=== PATIENT | male | born 1980 | race Caucasian/White ===

== ENCOUNTER 2020-05-26 03:16 | Inpatient (IN) | payer BC, OTHER ==
[~2020-05-26] VITALS: Ht 175.3 cm; Wt 87.6 kg
[~2020-05-26 03:16] MED LIST: ALPR1 PO; Bactrim Ds Tab1 EACH PO; CEPH250A PO; CRUTCH2 XX; DULO30 PO; ERYT.5TO RIGHTEYE; IBUP600 PO; IBUP800 PO; LORA1 PO; MARIJAUNA; Mobic15 MG PO; NAPR500 PO; Naprosyn500 MG PO; Norco 10-325 T1 EACH PO; Norco 5-325 Ta1 EACH PO; OXYACE5T PO; OXYACE7.5T PO; Percocet 5-3251 EACH PO; RXOXYACE PO
[2020-05-26] MEDS ORDERED: LOSARTAN-HCTZ1 EAC6 PO (03:28)
[2020-05-26] MEDS ORDERED: CLON.5 PO (03:28)
[2020-05-26] MEDS ORDERED: BACL10 PO (03:29)
[2020-05-26] MEDS ORDERED: BUPROPION XL150 M1 PO (03:29)
[2020-05-26] MEDS ORDERED: CYCL10 PO (03:29)
[2020-05-26 04:18] LABS: BASOPHILS ABSOLUTE AUTO 0.04 K/mm3 (0.00-0.23); BASOPHILS PERCENT AUTO 0 % (0-2); EOSINOPHILS ABSOLUTE AUTO 0.03 K/mm3 (0.00-0.68); EOSINOPHILS PERCENT AUTO 0 % (0-6); Hematocrit 49.4 % (37.0-53.0); Hemoglobin 17.3 g/dL (13.5-17.5); IMMATURE GRAN ABSOLUTE AUTO 0.16 K/mm3 (0.00-0.10); IMMATURE GRAN PERCENT AUTO 1 % (0-1); LYMPHOCYTES ABSOLUTE AUTO 2.13 K/mm3 (0.84-5.20); LYMPHOCYTES PERCENT AUTO 11 % (21-46); MONOCYTES ABSOLUTE AUTO 1.21 K/mm3 (0.16-1.47); MONOCYTES PERCENT AUTO 6 % (4-13); Mean Corpuscular HGB 30.1 pg (26.0-34.0); Mean Corpuscular Volume 86 fL (80-100); NEUTROPHILS ABSOLUTE AUTO 16.08 K/mm3 (1.96-9.15); NEUTROPHILS PERCENT AUTO 82 % (41-73); RDW Coefficient Variation 10.9 % (11.7-14.2); RDW Standard Deviation 34.4 fL (35.1-46.3); Red Blood Cell Count 5.75 M/mm3 (4.30-5.90); White Blood Cell Count 19.65 K/mm3 (4.00-11.30)
[2020-05-26 04:21] LABS: Mean Platelet Volume 10.5 fL (9.1-12.4); Platelet Count 260 K/mm3 (150-400)
[2020-05-26 05:08] LABS: Acetaminophen, Random <2.0 ug/mL (10.0-30.0); Alanine Aminotransfer (ALT/SGP 26 U/L (12-78); Albumin, Blood 3.1 g/dL (3.4-5.0); Albumin/Globulin Ratio 0.9 (0.8-1.8); Alk Phos 36 U/L (50-136); Anion Gap 26 mmol/L (6-16); Aspartate Aminotrans (AST/SGOT 21 U/L (12-37); Bilirubin, Total 0.7 mg/dL (0.1-1.0); Blood Urea Nitrogen 43 mg/dL (8-24); Bun/Creatinine Ratio 25.9 (12.0-20.0); CO2, Blood 18 mmol/L (21-32); Calcium, Blood 7.3 mg/dL (8.5-10.1); Chloride, Blood 76 mmol/L (98-108); Creatinine, Blood 1.66 mg/dL (0.60-1.20); Ethanol (Alcohol), Blood, Med <3 mg/dL; Globulin, Blood 3.6 g/dL (2.2-4.0); Glomerular Filtration Rate 49 (60-); Glucose, Blood 451 mg/dL (70-99); Potassium, Blood 2.8 mmol/L (3.5-5.5); Salicylate 2.3 mg/dL (2.8-20.0); Sodium, Blood 120 mmol/L (136-145); Total Protein, Blood 6.7 g/dL (6.4-8.2)
[2020-05-26 06:17] LABS: CPK Creatine Kinase 235 U/L (39-308)
--- NOTE | 2020-05-26 08:53 | NUR ---
ADMIT PT ARRIVES TO ICU 13 VIA ER BED AT 0815. PT IS AWAKE, ALERT, AND TALKING NONSENSICALLY. PT WILL ANSWER QUESTIONS APPROPRIATELY, THEN THOUGHT PROCESS SHIFTS AND PT BEGINS SPEAKING NONSENSICALLY. PT DOES REPORT AUDITORY AND VISUAL HALLUCINATIONS. PT IS RESTLESS AND APPEARS VERY ANXIOUS. VITAL SIGNS STABLE. PT ON ROOM AIR. NS BOLUS INFUSING AT THIS TIME. DR MERRITT AT BEDSIDE TO EVALUATE PT AT THIS TIME. PT WITH GAUZE DRESSING TO LEFT WRIST WITH BLOOD SHADOW NOTED. PT ON 2MD HOLD AND PT ACTIVELY CONFIRMS INTENT FOR SUICIDE. 1:1 SITTER AT DOORWAY OF ROOM AND PT ON REMOTE MONITORING CAMERA. WILL CONTINUE TO MONITOR.
[2020-05-26 09:04] LABS: Bun/Creatinine Ratio 25.7 (12.0-20.0); Calcium, Blood 8.6 mg/dL (8.5-10.1); Creatinine, Blood 1.75 mg/dL (0.60-1.20); Potassium, Blood 3.5 mmol/L (3.5-5.5)
[2020-05-26 13:24] LABS: Anion Gap 9 mmol/L (6-16); Blood Urea Nitrogen 38 mg/dL (8-24); Bun/Creatinine Ratio 28.8 (12.0-20.0); CO2, Blood 21 mmol/L (21-32); Calcium, Blood 8.5 mg/dL (8.5-10.1); Chloride, Blood 103 mmol/L (98-108); Creatinine, Blood 1.32 mg/dL (0.60-1.20); Glomerular Filtration Rate >60 (60-); Glucose, Blood 107 mg/dL (70-99); Potassium, Blood 3.8 mmol/L (3.5-5.5); Sodium, Blood 133 mmol/L (136-145)
--- NOTE | 2020-05-26 13:29 | NUR ---
UPDATE PT CONTINUES TO HAVE HALLUCINATIONS AND DELUSIONAL THOUGHT PROCESS. PT IS ABLE TO BE REDIRECTABLE WITH CARE. PT REMAINS SUICIDAL WITH CURRENT INTENTIONS OF SI. PLAN IS FOR PT TO BE EVALUATED BY DOMINIQUE ZAVALETA WITH PSYCH ON 05/27/20 IN THE AM. PT REMAINS ON INVOLUNTARY HOLD AND 1:1 SITTER REMAINS AT DOORWAY. VITAL SIGNS STABLE.
--- NOTE | 2020-05-26 14:11 | NUR ---
CONFUSION/DR MERRITT PT QUICKLY CLIMBED UP OVER THE BED RAIL AND OUT OF BED WITH ALL LINES ATTACHED. DETACHED ALL CORDS AND IV LINE AND INQUIRED IF PT NEEDED TO VOID. PT NO REDIRECTABLE, PT PACING AROUND THE ROOM. PT THEN PROCEEDES TO WALK OUT OF ROOM 13 AND INTO ROOM 14, THEN QUICKLY WALKS BACK INTO ROOM 13 AND APOLOGIZES. WITH TWO OTHER RNS AT BESIDE, PT IS THEN AGREEABLE TO GET BACK INTO BED. DR MERRITT NOTIFED AND CAME TO BEDSIDE TO SEE PT. PT IS ANXIOUS AND TREMULOUS WITH GARBLED SPEECH. PT MED WITH PRN HALDOL, ZYPREXA, AND ATIVAN. WILL CONTINUE TO MONITOR.
[2020-05-26 14:48] LABS: Source, Urine Clean Catch
[2020-05-26 14:51] LABS: Appearance, Urine Clear (Clear); Bilirubin, Urine Neg (Neg); Blood, Urine Neg (Neg); Color, Urine Yellow (P-Yellow); Glucose Qualitative, Urine Neg (Neg); Ketones, Urine 3+ (Neg); Leukocyte Esterase, Urine Neg (Neg); Nitrite, Urine Neg (Neg); Protein, Urine 1+ (Neg); Urobilinogen, Urine NORM (Normal)
[2020-05-26 15:06] LABS: U Amphetamine Screen Not Detected; U Barbituate Screen Not Detected; U Benzodiazapine Screen Not Detected; U Buprenorphine Screen Not Detected; U Cannabinoids Screen DETECTED; U Cocaine Screen Not Detected; U Methadone Screen Not Detected; U Methamphetamine Screen Not Detected; U Opiates Screen Not Detected; U Phencyclidine Screen Not Detected
[2020-05-26 15:07] LABS: U Oxycodone Screen Not Detected; U Propoxyphene Screen Not Detected
--- NOTE | 2020-05-26 17:54 | NUR ---
SHIFT SUMMARY PT IS MORE RESTFUL AT THIS TIME. PT CONTINUES TO MUMBLE INCOHERENTLY AND HAVE DELUSIONS. PT WITH PERIODS OF RESTLESSNESS AND AGITATION. ALIYA VEST AND SBW RESTRAINTS REMAIN IN PLACE. VITAL SIGNS REMAIN STABLE. PT ON ROOM AIR. NS INFUSING AT 125 ML/HR. PT VOIDED ONCE THIS SHIFT WITH ASSISTANCE USING THE URINAL. PT IS NOT REDIRECTABLE. PT MED WITH HALDOL, ATIVAN, AND ZYPREXA PRN. SEE PREVIOUS NURSES NOTES FOR MORE INFO. INVOLUNTARY HOLD REMAINS IN PLACE. REMOTE MONITORING CAMERA IS ON AND 1:1 SITTER REMAINS AT DOORWAY. WILL CONTINUE TO MONITOR AND REPORT OFF TO ONCOMING RN.
--- NOTE | 2020-05-26 18:45 | NUR ---
CONTINUED AGITATION DR MERRITT NOTIFIED OF CONTINUED AGITATION AND THRASHING AROUND IN BED DESPITE PRN HALDOL AND ATIVAN. ORDERS RECIEVED FOR PRECEDEX GTT. PRECEDEX INITIATED AT THIS TIME.
--- NOTE | 2020-05-26 21:00 | NUR ---
ASSUMPTION OF CARE PT RESTING IN BED, SEDATED WITH PRECEDEX @ 0.7/kg/hr (SEE FLOWSHEET FOR TITRATIONS), PT AROUSES TO NOXIOUS STIMULI BUT IS UNABLE TO ANSWER QUESTIONS OR FOLLOW COMMANDS AT THIS TIME. MONITOR SHOWS SINUS RHYTHM WITH HR 100-120'S, BP WNL BUT TRENDING DOWN WITH SBP 130'S-90'S. PT IS AFEBRILE. SKIN IS DIAPHORETIC, CBG WNL. L WRIST AND HAND INJURIES WITH COBAN DRESSINGS IN PLACE, REMOVED COBAN, CLEANED WOUNDS AND REDRESSING WITH NON ADHERENT AND MEDIPORE DRESSING, SEE PHOTOS IN CHART. CONDOM CATHETER PLACED. ALIYA VEST AND BILAT WRIST RESTRAINTS IN PLACE. NOT VTE PROPHYLAXIS AT THIS TIME, SEE ORDERS AND H&P. 1:1 SITTER PRESENT AT PTS DOORWAY.
--- NOTE | 2020-05-26 22:58 | NUR ---
PT VERY AGITATED WITH LAB DRAW, PULLING AT RESTRAINTS, LEANING UP IN BED. INFORMED PT HE WAS IN THE HOSPITAL, PT STS "I KNOW". LET PT KNOW WE NEED TO DRAW BLOOD TO CHECK HIS LABS AND PT STS "OKAY, IM JUST TRYING TO GET OVER THERE." PT KEEPS EYES CLOSED, APPEARS TO BE HALLUCINATING, STS "DAHLIA, GO LAY DOWN" AND MAKES A GESTURE THAT APPEARS TO BE HIM KISSING SOMEONES HEAD. PRECEDEX RESTARTED AND ZYPREXA ADMINISTERED.
[2020-05-26 23:24] LABS: Anion Gap 5 mmol/L (6-16); Blood Urea Nitrogen 32 mg/dL (8-24); Bun/Creatinine Ratio 25.2 (12.0-20.0); CO2, Blood 26 mmol/L (21-32); Calcium, Blood 8.4 mg/dL (8.5-10.1); Chloride, Blood 106 mmol/L (98-108); Creatinine, Blood 1.27 mg/dL (0.60-1.20); Glomerular Filtration Rate >60 (60-); Glucose, Blood 111 mg/dL (70-99); Potassium, Blood 4.8 mmol/L (3.5-5.5); Sodium, Blood 137 mmol/L (136-145)
--- NOTE | 2020-05-27 00:36 | NUR ---
ATTEMPTS TO TITRATE PRECEDEX OFF UNSUCCESSFUL, PT WAKES UP, EXTREMETIES x4 TREMORING, PT MUMBLING AND FIDGETING WITH WATT AND WRIST RESTRAINTS. WHEN ASKED WHERE HE IS, PT STS "I'M RIGHT BEHIND YOU". PT HALLUCINATING AND TALKING TO PEOPLE NOT IN THE ROOM. PT DOES NOT OPEN EYES. IV HALIDOL ADMINISTERED AND PRECEDEX RESTARTED, TITRATED TO 0.05mcg/kg/hr R/T PREVIOUS HYPOTENSION EVEN WITH LOW DOSES INFUSING. 1:1 SITTER REMAINS AT DOORWAY.
[2020-05-27 04:58] LABS: BASOPHILS ABSOLUTE AUTO 0.03 K/mm3 (0.00-0.23); BASOPHILS PERCENT AUTO 0 % (0-2); EOSINOPHILS ABSOLUTE AUTO 0.02 K/mm3 (0.00-0.68); EOSINOPHILS PERCENT AUTO 0 % (0-6); Hematocrit 36.2 % (37.0-53.0); Hemoglobin 12.2 g/dL (13.5-17.5); IMMATURE GRAN ABSOLUTE AUTO 0.02 K/mm3 (0.00-0.10); IMMATURE GRAN PERCENT AUTO 0 % (0-1); LYMPHOCYTES ABSOLUTE AUTO 1.86 K/mm3 (0.84-5.20); LYMPHOCYTES PERCENT AUTO 24 % (21-46); MONOCYTES ABSOLUTE AUTO 0.98 K/mm3 (0.16-1.47); MONOCYTES PERCENT AUTO 13 % (4-13); Mean Corpuscular HGB 29.8 pg (26.0-34.0); Mean Corpuscular HGB Conc 33.7 g/dL (31.5-36.5); Mean Corpuscular Volume 88 fL (80-100); Mean Platelet Volume 10.4 fL (9.1-12.4); NEUTROPHILS ABSOLUTE AUTO 4.84 K/mm3 (1.96-9.15); NEUTROPHILS PERCENT AUTO 62 % (41-73); Platelet Count 215 K/mm3 (150-400); RDW Coefficient Variation 11.1 % (11.7-14.2); RDW Standard Deviation 35.8 fL (35.1-46.3); White Blood Cell Count 7.75 K/mm3 (4.00-11.30)
[2020-05-27 05:08] LABS: Alanine Aminotransfer (ALT/SGP 26 U/L (12-78); Albumin/Globulin Ratio 1.1 (0.8-1.8); Alk Phos 39 U/L (50-136); Anion Gap 5 mmol/L (6-16); Aspartate Aminotrans (AST/SGOT 15 U/L (12-37); Bilirubin, Total 1.3 mg/dL (0.1-1.0); Blood Urea Nitrogen 31 mg/dL (8-24); Bun/Creatinine Ratio 31.5 (12.0-20.0); CO2, Blood 25 mmol/L (21-32); Calcium, Blood 8.2 mg/dL (8.5-10.1); Chloride, Blood 108 mmol/L (98-108); Creatinine, Blood 0.98 mg/dL (0.60-1.20); Globulin, Blood 2.8 g/dL (2.2-4.0); Glomerular Filtration Rate >60 (60-); Glucose, Blood 108 mg/dL (70-99); Potassium, Blood 3.7 mmol/L (3.5-5.5); Sodium, Blood 138 mmol/L (136-145); Total Protein, Blood 5.8 g/dL (6.4-8.2)
[2020-05-27 07:10] LABS: C-PEPTIDE, SERUM 3.7 ng/mL (1.1-4.4)
--- NOTE | 2020-05-27 07:51 | NUR ---
SHIFT SUMMARY PT CONTINUES TO CYCLE THROUGH PERIODS OF REST AND RESTLESSNESS T/O SHIFT. PT ORIENTED ONLY TO SELF FOR MAJORITY OF SHIFT, BUT WAS ABLE TO STATE THAT HE WAS IN A HOSPITAL NEAR THE END OF SHIFT, PT FOLLOWING SOME COMMANDS, NOT ORIENTED TO YEAR OR EVENT. PT CONTINUES TO HALLUCINATE, HAVING CONVERSATIONS WITH PEOPLE NOT IN THE ROOM, CONVERSTAIONS APPEAR TO BE WITH HIS CHILDREN. PRECEDEX TITRATED TOLERATED, HALDOL x1, ZYPREXA x1 AND ATIVAN x2 ADMINISTERED THIS SHIFT. O2 SATURATIONS MAINTAINED> 90% ON RA. MONITOR SHOWS SINUS RHYTHM WITH HR 60'S-80'S, BP LABILE WITH PRECEDEX GTT. NO PO INTAKE THIS SHIFT. CONDOM CATHETER REMAINS IN PLACE. PT MOVES ALL EXTREMEITIES, MOVES SELF FROM SIDE TO SIDE, SITS UP AND BED AND PULLS ON WRIST RESTRAINTS. 1:1 SITTER REMAINS AT DOOR THROUGH ENTIRE SHIFT.
--- NOTE | 2020-05-27 08:30 | NUR ---
AM NOTE... ASSUMED CARE OF PT APROX 0700, PT IS A&Ox2 ABLE TO STATE HIS NAME/ AND THE YEAR. PT IS IN ALIYA VEST AND BILATERAL WRIST RESTRAINTS. PT HAS BEEN MAKING NONSENSICAL STATEMENTS LIKE "I FEEL LIKE A STORAGE UNIT" AND TELLING HIS DOG TO "SIT AND STAY." PT'S LEFT WRIST HAS A DRESSING THAT HAS SEROSANGUINOUS DRAINAGE. L/S CLEAR T/O ON RA. PT'S VS STABLE AT THIS TIME BP IS A LITTLE SOFT WITH SBP IN THE 80'S BUT MAPS>60. PRECEDEX IS RUNNING AT 0.3MCG/KG. PT IS IN NSR IN THE 60'S. PT HAS TRACE EDEMA NOTED TO HIS HANDS BILATERALLY. BT PRESENT AND HYPOACTIVE, ABD IS SOFT AND NONTENDER TO PALP. PT HAS A 1:1 SITTER, PT HAS NOT EXPRESSED ANY SUICIDAL IDEATIONS THIS AM. WILL CONTINUE TO MONITOR.
[2020-05-27 11:14] LABS: Anion Gap 5 mmol/L (6-16); Blood Urea Nitrogen 31 mg/dL (8-24); Bun/Creatinine Ratio 32.7 (12.0-20.0); CO2, Blood 26 mmol/L (21-32); Calcium, Blood 8.1 mg/dL (8.5-10.1); Chloride, Blood 109 mmol/L (98-108); Creatinine, Blood 0.95 mg/dL (0.60-1.20); Glomerular Filtration Rate >60 (60-); Glucose, Blood 103 mg/dL (70-99); Potassium, Blood 3.8 mmol/L (3.5-5.5); Sodium, Blood 140 mmol/L (136-145)
--- NOTE | 2020-05-27 15:22 | NUR ---
PT UPDATE.... PT'S MOTHER KAUSHIK HAS BEEN AT THE BEDSIDE FOR SEVERAL HOURS, SHE WAS PRESENT DURING THE TELE-PSYCH CONSULT WITH DR. COCO ZAVALETA. PER KAUSHIK THE PT'S FAMILY HAS A LONG HISTORY OF KIDNEY DISEASE. WHILE THE PT'S MOTHER WAS AT THE BEDSIDE THE PT HAD AN EPISODE OF 300MLS OF EMESIS OUT OF THE BLUE DURING THIS TIME PT WAS A&Ox4 HE WAS ABLE TO QUICKLY STATE HE WAS IN [place], HE WAS WIDE AWAKE AND NOT STRUGGLING TO KEEP HIS EYELIDS OPEN. THIS LASTED APROX 1-2 MINS THEN SUDDENLY THE PT'S HEAD DROPPED AND HE CLOSED HIS EYES AND WAS CONFUSED AND MUMBLING AGAIN. T/O THIS SHIFT THE PT'S MENTATION SEEMS TO HAVE BEEN IMPROVING, HE WILL HAVE MOMENTS OF VIVID CLARITY THEN HE WILL CLOSE HIS EYES AND START REACHING OUT INTO THE AIR IF TO GRAB SOMTHING. PT HAS NOT MADE ANY MENTION OF SUICIAL IDEATIONS SINCE THE START OF THIS SHIFT. WILL CONTINUE TO MONITOR.
[2020-05-27 17:33] LABS: Anion Gap 9 mmol/L (6-16); Blood Urea Nitrogen 26 mg/dL (8-24); Bun/Creatinine Ratio 32.5 (12.0-20.0); CO2, Blood 22 mmol/L (21-32); Chloride, Blood 112 mmol/L (98-108); Glomerular Filtration Rate >60 (60-); Glucose, Blood 92 mg/dL (70-99); Potassium, Blood 3.8 mmol/L (3.5-5.5); Sodium, Blood 143 mmol/L (136-145)
--- NOTE | 2020-05-27 17:53 | NUR ---
SHIFT SUMMARY... NO ACUTE NEGATIVE CHANGES NOTED THIS SHIFT. PT'S VS HAVE BEEN STABLE T/O SHIFT. PT IS MORE ALERT THIS EVENING THAN HE WAS THIS AM, BUT PT STILL CONTINUES TO HAVE DELUSIONS/HALLUCINATIONS AND SPEAKING WITH PEOPLE THAT ARE NOT THERE OR REACHING FOR THINGS IN THE AIR THAT ARE NOT THERE. PT'S MOTHER HAS BEEN AT THE BEDSIDE T/O THE SHIFT. PT CONTINUES TO BE ON THE PRECEDED GTT, THE PRECEDEX HAS BEEN TITRATED UP AND DOWN T/O THE SHIFT IN RELATION TO THE PT'S AGITATION, CURRENTLY THE PRECEDEX IS RUNNING AT 0.7 MCG. IT WAS ALOS NOTED THAT THE PT HAD NOT VOIDED VERY MUCH THIS SHIFT, A BLADDER SCAN WAS DONE AND FOUND TO HAVE >999MLS, PT WAS ENCOURAGED TO VOID AND WAS ABLE TO VOID APROX 150MLS WITH GREAT EFFORT, BLADDER SCAN WAS DONE AGAIN AND IT SHOWED 750MLS LEFT. PROVIDER WAS CALLED AND AN ORDER FOR IN AND OUT CATH WAS OBTAINED, THIS RN SPOKE WITH THE PT AND HIS MOTHER WHO WAS PRESENT IN THE ROOM, PER THE MOTHER THE PROVIDER WAS CALLED BACK AND ASKED FOR A NANCE INSTESAD OF A STRAIGHT CATH, PT'S MOTHER SPOKE WITH THE PROVIDER AND THIS RN WAS GIVEN AN ORDER FOR A NANCE. A NANCE WAS PLACED AND UA WAS SENT TO THE LAB. THE DRESSING ON THE LEFT WRIST WAS CHANGED D/T MODERATE DRAINAGE, NEW PICTURES OBTAINED FOR THE CHART. PT C/O OF SEVERE PAIN DURING WOUND CARE AND AFTERWARDS, PT WAS MEDICATED PER EMAR. PT CONTINUES TO HAVE DELUSIONS AND HALLUCIATIONS ABOUT "A WHITE CAT DRAGGING SOMETHING BLOODY ACROSS THE FLOOR." AND THE PT PULLING AT THINGS IN THE AIR. WILL CONTINUE TO MONITOR UNTIL REPORT IS GIVEN TO ONCOMING RN.
[2020-05-27 18:12] LABS: Source, Urine Catheter
[2020-05-27 18:15] LABS: Appearance, Urine Clear (Clear); Bilirubin, Urine Neg (Neg); Blood, Urine Neg (Neg); Color, Urine Yellow (P-Yellow); Glucose Qualitative, Urine Neg (Neg); Ketones, Urine 3+ (Neg); Leukocyte Esterase, Urine Neg (Neg); Nitrite, Urine Neg (Neg); Protein, Urine 1+ (Neg); Urobilinogen, Urine NORM (Normal)
--- NOTE | 2020-05-27 19:30 | NUR ---
ASSUMED CARE PT AWAKE AND ALERT TO NAME. IS NOT ABLE TO STATE PLACE AND CIRCUMSTANCES. MOTIONING AT THE AIR AND BLANKETS BUT IS EASILY DIRECTABLE AND FOLLOWS COMMANDS. LUNG SOUNDS CLEAR, HEAR TONES NORMAL. BOWEL TONES NORMAL. SITTER AT BEDSIDE. WILL CONTINUE TO MONITOR.
--- NOTE | 2020-05-27 23:30 | NUR ---
PT REMAINS AWAKE, CONFUSED. REACHING FOR THE AIR AND THINGS IN BED NOT THERE. PT UNABLE TO SLEEP. NOTIFIED PRICILA JAEGER. RECEIVED ORDER FOR ANAND.
--- NOTE | 2020-05-28 01:00 | NUR ---
pt remains agitated, swiping at air, mumbling incoherently and saying nonsense sentences. pt medicated with haldol as ordered. sitter remains at bedside for pt. safety. pt. directable and follows commands.
--- NOTE | 2020-05-28 03:45 | NUR ---
PT ATTEMPTING TO PULL AT ITEMS FROM AIR, RAISES VOICE OCCASIONALLY. PT STATES HE IS HAVING VIOLENT DREAMS. ASSISTED PT WITH REPOSITIONING. PT FOLLOWS COMMANDS, AWARE TO SELF, NOT PLACE OR ENVIRONMENT. SITTER REMAINS AT BEDSIDE.
--- NOTE | 2020-05-28 04:56 | NUR ---
PT. CONTINUES WITH AGITATION, ATTEMPTS TO PICK AT THE AIR, NONSENSICAL SENTENCES, ATTEMPTS TO GET OOB. NOTIFIED DR. GUTIERREZ, RECEIVED ORDER FOR ATIVAN 1-2 MG Q6 FOR AGITATION.
--- NOTE | 2020-05-28 05:50 | NUR ---
PT REMAINED AWAKE AND AGITATED FOR MOST OF THE NIGHT. REACHING FOR THINGS IN THE AIR, AUDITORY AND VISUAL HALLUCINATION. PT. FOLLOWS COMMANDS AND IS ORIENTED TO SELF ONLY. PT. RECEIVED HALDOL, ZYPREXA AND FENTANYL FOR PAIN. REMAINED AGITATED AND RESTLESS. PT RECEIVED 2 MG ATIVAN AND IS NOW SLEEPING/RESTING. SITTER REMAINS AT BEDSIDE. NO DISTRESS AT THIS TIME.
--- NOTE | 2020-05-28 07:30 | NUR ---
Received report from Kaden Roa. Patient sleeping and aroused to verbal stimuli and aloud him to fall abck to sleep. He is on RA and sats >90%. He is calm and polite with verbal response. He has gonsalves in place draing yellow urine. He has 20 ga IV to LAC dressing intact and site WNL's flushed and SL'd. He also has 18ga RFA IV dressing intact and site WNL's and is infusing NS at 200ml/hr and Precedex at 0.7 mcg/kg/hr. MAEW. Yanes in p[lace and sitter at room enterance.
--- NOTE | 2020-05-28 09:30 | NUR ---
Patient awoke and called for warm blankets and was very thankf and appropriate with responses. He continues to sleep on RA and sats >90%. No changes to gtt's.
--- NOTE | 2020-05-28 11:30 | NUR ---
NS continues at 200 and Precedex at 0.7 mcg/kg/hr. He has been rest and awakens easily and polite and quiet voice. VSS See EMR. He denies any apetite and has occassionally aske for drinks of water and tolerates well.
--- NOTE | 2020-05-28 13:30 | NUR ---
No significant changes with patient and or changes from last note..
--- NOTE | 2020-05-28 15:39 | NUR ---
Dr Barahona here and spoke with patient and is talking with mother and getting hx. No changes in gtt's or VS. No other significanty changes.
--- NOTE | 2020-05-28 18:37 | NUR ---
Patient awoke and was able to have clear conversation, but when con versation slows down he goes to negative thought and od statements about family members and little kids pulling his bones and hitting him with them. He is still very appropriate with mya and quick conversations. he tolerated dinner and liquids with out difficulty. Family discussed that they would like to continue with [facility] for Psych evaluation and feel he needs placement to be safe. VSS, See EMR. Patient denies any current needs.
--- NOTE | 2020-05-28 19:58 | NUR ---
ASSUMED PT CARE. PT AROUSES EASILY TO VOICE. ANSWERING [place] APPROPRIATELY BUT SLOW TO ANSWER. PT CALM, MUCH LESS AGITATION THATN LAST NOC. LUNG SOUNDS CLEAR, HEART TONES NORMAL. BOWEL TONES NORMAL, NO ABD TENDERNESS. NO LOWER EXTREMITY SWELLING. PT ABLE TOP REPOSITION INDEPENDENTLY. MOVING ALL EXTREMETIES EQUALLY. PRECEDEX INFUSING AT 0.7. NS INFUSING AT 200/HR.
--- NOTE | 2020-05-28 22:36 | NUR ---
PT SLEEPING AT THIS TIME. PRECEDEX GTT ON [facility]. VSS STABLE SITTER AT ENTRANCE TO ROOM
--- NOTE | 2020-05-29 01:35 | NUR ---
SUICIDE REASSESSMENT PT A&OX3. ABLE TO ALSO STATE SITUATION. UPON SI REASSESSMENT, PT. STATES HE CONTINUES TO HAVE THOUGHTS OF SUICIDE. STATES "I FEEL LIKE I DO NOT DESERVE TO BE HERE." STATES "THINGS WOULD BE BETTER WITHOUT ME." PT STATES HE DOES NOT HAVE AN ACTIVE PLAN AT THIS MOMENT BUT DOES HAVE CONINUING THOUGHTS OF WHAT HE COULD DO. REASSURED PT. THAT HE IS SAFE HERE. PT. STATED UNDERSTANDING.
--- NOTE | 2020-05-29 03:23 | NUR ---
DRESSING CHANGED TO LEFT WRIST AND HAND. APPROX 3CM LACERATION SUTURED, APPEARS WELL APPROXIMATED, NO REDNESS, NO DRAINAGE, NO S/S OF INFECTION. CLEANED WITH NS, APPLIED NON-STICK DRSG, DRY DRSG OVER TOP. PT TOLERATED WELL.
[2020-05-29 03:25] LABS: BASOPHILS ABSOLUTE AUTO 0.05 K/mm3 (0.00-0.23); BASOPHILS PERCENT AUTO 1 % (0-2); EOSINOPHILS PERCENT AUTO 1 % (0-6); Hematocrit 31.2 % (37.0-53.0); Hemoglobin 10.7 g/dL (13.5-17.5); IMMATURE GRAN ABSOLUTE AUTO 0.04 K/mm3 (0.00-0.10); IMMATURE GRAN PERCENT AUTO 1 % (0-1); LYMPHOCYTES ABSOLUTE AUTO 2.44 K/mm3 (0.84-5.20); LYMPHOCYTES PERCENT AUTO 28 % (21-46); MONOCYTES ABSOLUTE AUTO 0.75 K/mm3 (0.16-1.47); MONOCYTES PERCENT AUTO 9 % (4-13); Mean Corpuscular HGB 30.5 pg (26.0-34.0); Mean Corpuscular HGB Conc 34.3 g/dL (31.5-36.5); Mean Corpuscular Volume 89 fL (80-100); Mean Platelet Volume 10.6 fL (9.1-12.4); NEUTROPHILS ABSOLUTE AUTO 5.23 K/mm3 (1.96-9.15); NEUTROPHILS PERCENT AUTO 61 % (41-73); Platelet Count 228 K/mm3 (150-400); RDW Coefficient Variation 10.9 % (11.7-14.2); RDW Standard Deviation 35.5 fL (35.1-46.3); Red Blood Cell Count 3.51 M/mm3 (4.30-5.90); White Blood Cell Count 8.61 K/mm3 (4.00-11.30)
[2020-05-29 03:41] LABS: Anion Gap 6 mmol/L (6-16); Blood Urea Nitrogen 15 mg/dL (8-24); Bun/Creatinine Ratio 18.2 (12.0-20.0); CO2, Blood 26 mmol/L (21-32); Chloride, Blood 111 mmol/L (98-108); Creatinine, Blood 0.83 mg/dL (0.60-1.20); Glomerular Filtration Rate >60 (60-); Glucose, Blood 93 mg/dL (70-99); Potassium, Blood 3.4 mmol/L (3.5-5.5); Sodium, Blood 143 mmol/L (136-145)
--- NOTE | 2020-05-29 05:54 | NUR ---
SHIFT SUMMARY PT REMAINED CALM AND COOPERATIVE THROUGHOUT THE NIGHT. A&OX3. NO OBVIOUS SIGNS OF AUDITORY OR VISUAL HALLUCINATIONS. UPON QUESIONING, PT. MAINTAINS SUCIDAL IDEATION. VEST RESTRAINT D/C'D AT 0300. PT. FOLLOWS COMMANDS AND STAYS IN BED. POLITE AND WANTS TREATMENT. MEDICATED PT. 2 TIMES WITH FENTANYL FOR HAND PAIN WITH GOOD EFFECT. ZYPREXA GIVEN FOR GOOD EFFECT. NO DISTRESS AT THIS TIME.
--- NOTE | 2020-05-29 09:46 | NUR ---
CARE ASSUMED ASSESSMENT COMPLETED, PT AWAKE, ALERT, ORIENTED TO SELF, PLACE, AND SITUATION. REPORTS SI REMAINS PRESENT, THOUGH HE DOES NOT HAVE A CURRENT PLAN OF ACTION. SI PRECAUTIONS ACTIVE. PT STATES HE CONTINUES TO HAVE INTERMITTENT AUDIO/VISUAL HALLUCINATIONS, IS AWARE THAT THEY ARE NOT REALITY. S/O AT BEDSIDE, DR. MERRITT IN TO ASSESS PATIENT, NEW ORDERS RECEIVED. LEE ANN MCCORD, PT UP TO SHOWER WITH STAFF TO MONITOR, NO INCIDENT OCCURANCE. PT AMBULATED BACK TO ROOM, SAT UP IN CHAIR TO EAT BREAKFAST AND VISIT WITH S/O, REMAINS APPROPRIATE. TELEPSYCH CONSULT ORDERED, SCHEDULED FOR 1600 TODAY. PT NOW IN ROOM ALONE IN ROOM RESTING IN BED AND WATCHING TV, 1:[address], RESTRAINTS AND PRECEDEX REMAIN OFF SINCE LAST NIGHT.
[2020-05-29] MEDS ORDERED: CITA20 PO (10:45)
--- NOTE | 2020-05-29 12:35 | NUR ---
UPDATE PT REMAINS ALERT, ORIENTED X3, APPROPRIATE AND COOPERATIVE. RESTING IN BED WATCHING TV, UP TO BR INDEPENDENTLY, 1:[address]. NO AGITATION OR BIZARRE BEHAVIORS NOTED, PT REMAINS OFF OF PRECEDEX GTT, NO PRN PSYCH MEDS SO FAR THIS SHIFT. TOLERATING MEALS WELL, PT AWARE OF PLAN FOR TELEPSYCH CONSULT THIS AFTERNOON.
--- NOTE | 2020-05-29 16:26 | NUR ---
UPDATE PT CALM AND COOPERATIVE THIS AFTERNOON, NO CHANGES IN MENTAL STATUS, INTERMITTENT HALLUCINATIONS AND SI CONTINUE, NO INAPPROPRIATE BEHAVIORS. ZYPREXA ADMINISTERED TO PREVENT INCREASE IN SYMPTOMS. S/O NOW AT BEDSIDE, PT BEING EVALUATED BY TELEPSYCH DOCTOR.
--- NOTE | 2020-05-29 18:20 | NUR ---
END OF SHIFT DR. MERRITT AWARE OF TELEPSYCH 'S RECOMMENDATIONS, NEW ORDERS RECEIVED. PT SITTING UP IN CHAIR WATCHING TV, DENIES HALLUCINATIONS AT THIS TIME, STATES LAST TIME HE EXPERIENCED ANY WAS THIS MORNING. SI REMAINS PRESENT. NO BIZARRE OR INAPPROPRIATE SPEECH OR BEHAVIORS THIS SHIFT, PT CALM AND APPROPRIATE, COOPERATIVE WITH CARE. PT NOW MEDICAL STATUS, MILK OF MAG AND LOSARTAN/HCTZ ADMINISTERED ORDERED. S/O REMAINS AT BEDSIDE VISITING, PT CALM AND COOPERATIVE, APPROPRIATE. WILL REPORT TO ONCOMING SHIFT.
--- NOTE | 2020-05-29 19:25 | NUR ---
ASSUMED PT CARE PT AWAKE AND ALERT AND ORIENTED. CALM AND COOPERATIVE. NO S/S OF HALUCINATIONS OR BIZARRE BEHAVIOR. PT STATES HE HAS NOT HAD ANY HALLUCINATIONS SINCE THIS MORNING. PT STATES HE DOES FEEL SUICIDAL. STATES HE FEELS IF HE WENT HOME HE WOULD ACT ON HIS SI. PT SITTING UP IN CHAIR, MOVES ALL EXTREMITIES EQUALLY. PT. SO AT BEDSIDE. PT LEFT HAND SLIGHTLY SWOLLEN, cms INTACT, PT STATES SOME NUMBNESS TO LEFT THUMB AREA. ENCOURAGED PT TO ELEVATE HAND ON A PILLOW TO REDUCE SWELLING. NO DISTRESS AT THIS TIME.
--- NOTE | 2020-05-29 20:58 | NUR ---
COMPLETED DRESSING CHANGE TO LEFT HAND. WOUND APPEARS WELL APPROXIMATED, SUTURES INTACT, SMALL AMOUNT OF SEROSANGUINOUS FLUID TO PREVIOUS DRESSING. NO S/S OF INFECTION. CLEANED WITH NS, APPLIED NONSTICK DRESSING, WITH 2INCH KERLIX OVER TOP. PT TOLERATED WELL.
--- NOTE | 2020-05-29 23:22 | NUR ---
PT SLEEPING/RESTING. EASILY AROUSABLE. DENIES PAIN OR DISCOMFORT. DENIES AUDITORY OR VISUAL HALLUCINATIONS. NO BIZARRE BEHAVIOR NOTED. SITTER AT DOORWAY.
--- NOTE | 2020-05-30 02:11 | NUR ---
pt sleeping, no obvious distress. sitter at doorway.
--- NOTE | 2020-05-30 04:27 | NUR ---
PT STATES PAIN AT 8/10 IN LEFT HAND. MEDICATED PT WITH FENTANYL 50MCG OREEDERED FOR GOOD EFFECT.
--- NOTE | 2020-05-30 05:29 | NUR ---
PT SLEEPING WELL THROUGHOUT MOST OF THE NIGHT. AWAKENS EASILY TO VOICE OR TACTILE STIMULATION. PT DENIES AUDITORY OR VISUAL HALLUCINATIONS THROUGHOUT THE NIGHT. REPOSITIONS INDEPENDENTLY. DRESSING INTACT TO LEFT HAND, NO DRAINAGE NOTED.
--- NOTE | 2020-05-30 09:46 | NUR ---
ASSUMED CARE OF PT AT 0700. REPORT FROM LAZARUS BRAVO. PT RESTING IN BED. A&OX 4. CALM AND COOPERATIVE. ANSWERS QUESTIONS APPROPRIATELY. FOLLOWS COMMANDS. PT DENIES VISUAL OR AUDITORY HALLUCINATIONS. REPORTS SI, NO PLAN. PLAN FOR INPATIENT PSYCH TRANSFER. PT REPORTS 7/10 PAIN TO LEFT HAND, CHRONIC PAIN TO BACK. IMPROVED c FENTANYL. WOUND TO ANTERIOR LEFT WRIST, POSTERIOR LEFT HAND. SUTURES IN PLACE, SEROUS DRAINAGE. PT REPORT NUMBNESS TO THUMB. CAP REFILL<3 SEC. DRESSING CHANGED. HTN NOTED. MEDICATED ORDERED. 1:1 SITTER c CAMERA OBSERVATION. WILL CONTINUE TO MONITOR.
[2020-05-30 10:12] LABS: Influenza A, PCR Negative (NEGATIVE); Influenza B, PCR Negative (NEGATIVE); Resp Syncytial Virus, PCR Negative (NEGATIVE); SARS-Cov-2 (COVID-19) PCR, MMC Negative (NEGATIVE)
[2020-05-30 14:08] LABS: ANTIPANCREATIC ISLET CELLS Negative (Neg:<1:1)
--- NOTE | 2020-05-30 17:08 | NUR ---
SHIFT SUMMARY NO ACUTE CHANGES. PT AWAITING TRANSFER TO IN PSYCH FACILITY. POSSIBLE PLACEMENT AT [facility] TOMORROW, TERESSA Quiles ARRANGING. PT C/O PAIN TO LEFT HAND, ORDER OBTAINED FOR HENRY, PAIN IMPROVED. CALM, COOPERATIVE. 2MD HOLD CONTINUES. 1:1 SITTER c CAMERA OBSERVATION. WILL CONTINUE TO MONITOR UNTIL REPORT TO ONCOMING NURSE.
--- NOTE | 2020-05-30 22:20 | NUR ---
ASSUMPTION OF CARE PT AWAKE IN BED, ORIENTED TO SELF, LOCATION, EVENT AND FOLLOWING DIRECTIONS. PT DOES REPORT SI AND INTERMITTENT VISUAL/AUDITORY HALLUCINATIONS, PT DOES NOT CURRENTLY HAVE A PLAN TO HARM SELF. PT ON RA WITH O2 SATURATIONS> 90%, HYPERTENSION NOTED, PT REPORTS BP AT HOME IS TYPICALLY HIGH BUT SCHEDULED MEDICATIONS HAVE HELPED BRING IT DOWN. SEROUS DRAINAGE SOAKING THROUGH L HAND/WRIST DRESSING, DRESSING CHANGED. PT REPORTS MILD CONSTIPATION, SCHEDULED MEDICATIONS PROVIDED. PT DENIES ISSUES. PT AMBULATES INDEPENDENTLY AND REPOSITIONS SELF IN BED. 1:1 SITTER PRESENT AT PTS DOORWAY.
--- NOTE | 2020-05-31 05:21 | NUR ---
SHIFT SUMMARY NO ACUTE CHANGES THIS SHIFT, PT SLEPT WELL T/O NIGHT, VSS. PT CONTINUES TO REPORT SI. PAIN TO L WRIST/HAND WELL MANAGED WITH PRN TRAMADOL AND NORCO. PT TOLERATING PO INTAKE, NO BM THIS SHIFT, DENIES ISSUES. 1:1 SITTER PRESENT T/O SHIFT AT DOORWAY. CALL LIGHT WITHIN REACH.
--- NOTE | 2020-05-31 10:48 | NUR ---
AM NOTE... ASSUMED CARE OF PT APROX 0700, PT IS A&Ox4 AND CURRENTLY HAS A 1:1 SITTER FOR ADMITTED SUICIDAL IDEATIONS. PT'S VS STABLE AT THIS TIME. PT'S L/S CLEAR T/O ON RA. BT PRESENT AND HYPOACTIVE, ABD HAS MILD DISTENTION NONTENDER TO PALP. NO EDEMA NOTED ON ASSESSMENT. PT HAS LACERATION TO HIS LEFT WRIST AND THE TOP OF HIS LEFT HAND, THESE AREAS ARE COVERED BY A DRESSING, DRESSING IS C/D/I AT THIS TIME. WHEN ASKED ABOUT SUICIDAL THOUGHTS THE PT STATED THAT HE HAD THEM AT THIS TIME BUT THAT HE DID NOT HAVE A PLAN AT HE MOMENT. 1:1 SITTER IN THE ROOM WITH REMOTE MONITORING.
--- NOTE | 2020-05-31 17:53 | NUR ---
SHIFT SUMMARY... NO ACUTE NEGATIVE CHANGES NOTED THIS SHIFT. PT'S VS HAVE BEEN STABLE. PT HAS BEEN MEDICATED FOR PAIN PER EMAR. PT HAS BEEN UP IN THE ROOM INDEPENDENTLY, PT HAS BEEN USING THE BATHROOM INDEPENDENTLY AND HAD A BM THIS SHIFT. THE DRESSING TO HIS LEFT HAND IS C/D/I, IT HAS NOT BEEN CHANGED THIS SHIFT. PT'S S.O. IN THE ROOM, PT CONTINUES TO BE CALM AND COOPERATIVE. PT DENIES HEARING VOICES BUT STATES HE IS HEARING "MUSIC" OR HIS "CONSCIOUSNESS". PT IS EXHIBITING SOME PARANOIA MAKING STATEMENTS TO HIS S.O. LIKE: "I KNOW THE PRESIDENT IS OUT TO GET ME!" PT HAS ALSO EXPRESSED PARANOID FEELINGS ABOUT HIS DAUGHTERS WELL. PT IS TO TRANSFER TO THE MEDICAL FLOOR, REPORT WAS CALLED TO TERESSA BRAVO.
--- NOTE | 2020-05-31 18:53 | NUR ---
TRANSFER PT TRANSFERRED TO ROOM 345 FROM ICU FOR SI. PT INDEPENDENT IN ROOM. NO COMPLAINTS AT THIS TIME. CAMERA ON. CALL LIGHT IN REACH. WILL REPORT TO ONCOMING RN.
--- NOTE | 2020-06-01 04:34 | NUR ---
SUMMARY: PT REMAINS ON 2MD HOLD W/MODERATE SI PRECAUTIONS AND CAMERA MONITORING IN PLACE. HE'S A/OX4, INDEPENDENT IN ROOM AND SPECIFIES NEEDS. ACUTE L.ARM/HAND AND CHRONIC BACK/NECK PAIN WERE MANAGED PER EMAR. HE'S BEEN VERY CANDID RE: THE HALLUCINATIONS AND DELUSIONS HE'D PREVIOUSLY EXPERIENCED BUT DENIED HAVING ANY THIS SHIFT. HE SAID HIS HALLUCINATIONS SEEM TO OCCUR WHEN GOING IN AND OUT OF SLEEP AND ASKED TO BE AWOKEN IF HE WAS "TALKING TO HIMSELF" TO ATTEMPT TO FURTHER EVALUATE THEM. 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 HE ADMITTED TO CONTINUED SI BUT W/NO ACTIVE PLAN OR THOUGHTS ON HOW HE'D CARRY THESE OUT. HE ALSO SAID DESPITE FEELING "IN A BETTER PLACE" HE WOULDN'T CURRENTLY TRUST THAT HE "WOULDN'T STILL BE A HARM TO HIMSELF" RESULT OF "NOT TRUSTING HIS OWN THOUGHTS OR BRAIN". HIS S.O. 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 PT AND S.O. WERE BOTH AGREEABLE. I PLAN TO DISCUSS THIS W/DAY RN. HE'S BEEN VERY PLEASANT AND COOPERATIVE THOUGH, EXHIBITING NO S/S AGGITATED, DELUSIONAL OR PARANOID BEHAVIOR. HE SHOWERED AND HAD HIS L.ARM DX CHANGED. SNACKS AND NEW CLOTHES/LINEN WERE PROVIDED. HE'S DENIED ALL COMPLAINTS EXCEPT PAIN AND HAS SLEPT MAJORITY OF NIGHT. VSS AND AFEBRILE. NO ACUTE CHANGES. WCTM AND REPORT TO DAY RN.
[2020-06-01 07:29] LABS: Hematocrit 35.8 % (37.0-53.0); Mean Corpuscular HGB 30.5 pg (26.0-34.0); Mean Corpuscular HGB Conc 33.5 g/dL (31.5-36.5); Mean Corpuscular Volume 91 fL (80-100); Mean Platelet Volume 9.8 fL (9.1-12.4); Platelet Count 304 K/mm3 (150-400); RDW Standard Deviation 37.1 fL (35.1-46.3); Red Blood Cell Count 3.93 M/mm3 (4.30-5.90)
[2020-06-01 07:48] LABS: Anion Gap 1 mmol/L (6-16); Blood Urea Nitrogen 18 mg/dL (8-24); Bun/Creatinine Ratio 20.9 (12.0-20.0); CO2, Blood 33 mmol/L (21-32); Calcium, Blood 8.9 mg/dL (8.5-10.1); Chloride, Blood 104 mmol/L (98-108); Creatinine, Blood 0.86 mg/dL (0.60-1.20); Glomerular Filtration Rate >60 (60-); Glucose, Blood 92 mg/dL (70-99); Potassium, Blood 4.1 mmol/L (3.5-5.5); Sodium, Blood 138 mmol/L (136-145)
--- NOTE | 2020-06-01 15:41 | NUR ---
PATIENT IS PLEASANT AND COOPERATIVE WITH STAFF. VERY TRUTHFUL AND FORTHCOMING ABOUT HIS SI. STATES HE FEELS LIKE HE IS WHERE HE NEEDS TO BE AND THAT HE NEEDS TO GO TO AN INPATIENT PSYCH REHAB; HOWEVER IF HE WERE TO BE RELEASED HOME HE WOULD NOT TRUST HIMSELF. PATIENT SCORES HIGH ON SI RISK ASSESSMENT HOWEVER DR. BARON HAS LOWERED HIS PRECAUTIONS TO MODERATE. PATIENT IS COMPLIENT AND DOING ASKED. RESTING IN ROOM AT THIS TIME. WILL CONTINUE TO MONITOR AND PROVIDE CARE.
--- NOTE | 2020-06-02 00:20 | NUR ---
SI RISK/CHANGE THE PT CONTINUES TO HAVE A HIGH SI RISK ASSESSMENT HOWEVER THERE IS AN ORDER FOR MODERATE RISK PRECAUTIONS. CONFIRMED W CHARGE NURSE MITCHELL Lopez
--- NOTE | 2020-06-02 00:44 | NUR ---
IUSS MASTER ANALYST-CALL S/O PT'S SIGNIFICANT OTHER CALLED AND WOULD LIKE TO SPEAK TO THE PT'S IUSS MASTER ANALYST. S/O- DARINEL [phone]. WILL PASS ON TO PELON BRAVO.
--- NOTE | 2020-06-02 03:44 | NUR ---
MAT SEWER SUMMARY PT REPORTED CATCHING HIMSELF TALKING OUTLOUD TO HIMSELF AT THE BEGINNING OF THE SHIFT. THE PATIENT AKNOWLEDGED THE PRECAUTIONS BEING TAKEN FOR HIS SAFETY AND HIS NEED TO BE HERE. BANDAGE ON HIS WRIST IS C/D/I AND HE HAS SLEPT FOR MOST OF THE SHIFT. SCU MONITOR CONFIRMED THE PT IS ON CAMERA, WCTM.
--- NOTE | 2020-06-02 16:50 | NUR ---
PT AOX4 AND COOPERATIVE OF CARE. PT IS VERY COOPERATIVE OF CARE AND SEEMS TO BE VERY PROACTIVE FOR RECIEVING HELP. PT STATES HE FEELS BETTER, BUT REPORTS HE FINDS HE WELL BE TALKING TO HIMSELF WATCHING TV AND WHAT HE MEANS TO BE JUST IN HIS HEAD WILL FIND HE IS ACTUALLY SPEAKING OUT LOUD. PT STATES THIS MAKE HIM FEEL A LITTLE CONCERNED, BUT OVER ALL BETTER. PT STATES HE DOES NOT FEEL HIS IS SAFE TO GO HOME AT THIS TIME AND NEEDS MEDICAL CARE. PT WAS CALM AND QUIET MOST OF THE DAY. PT HAS BEEN PACING FOR THE LAST HOUR OFF AND ON. PT STATES HE IS JUST FEELING A BIT ANXIOUS. PT IS SITTING WATCHING TV WILL CONTINUE TO MONITOR.
--- NOTE | 2020-06-03 04:49 | NUR ---
CONSULTANT ELECTRONICS SUMMARY PT WAS PLEASANT AND COOPERATIVE W CARE. PT EXPRESSED SEVERE CONCERN THAT IF HE IS SENT HOME AND NOT TO AN INPATIENT PSYCHIATRIC FACILITY HE WILL IMMEDIATLEY ATTEMPT TO KILL HIMSELF AGAIN. PT HAD A SANDWICH AFTER 2100 MEDICATIONS AND WENT TO BED, PT HAS SLEPT COMFORTABLY FOR MOST OF THE NIGHT. AVEL.
--- NOTE | 2020-06-03 12:12 | NUR ---
SUICIDAL IDEATION PATIENT REPORTS THAT HE WILL ATTEMPT SUICIDE AGAIN, IF HE GOES HOME AT THIS TIME. THIS RN ASKED IF HE HAD A PLAN AND HE STATED NO, BUT THAT HE IS NOT SAFE TO GO HOME. HE AND HIS FAILY AGREE THAT HE NEEDS INPATIENT PSYCH. DARRYL CONNOR NOTIFIED.
--- NOTE | 2020-06-03 14:33 | NUR ---
interviewed patient again per request of Dr. Wallace. Pt was seen by this film writer [id number] for possible Safety Plan. Pt was unable to engage in planning at that visit. Pt today reports very anxious and increased back pain due to his immobility. Walked with pt in hallway several laps. Pt has suicidal ideation. Described that he would strip naked and walk backwards into traffic. "The highway is right here". Pt descrbes he has thoufht of may ways to kill himself--one was to creat a " pyre" in the [place] so it would fall on him after he had killed himself and burn him after he . Patient reports he is a "house " and would never hurt his children, but is afraid of going home. Debbie De La Rosa M.Ed., [facility] Behavior health Director.
--- NOTE | 2020-06-04 04:40 | NUR ---
SHIFT SUMMARY- PT. A&OX4, PLEASANT, AND COOPERATIVE WITH CARE. INDEPENDENT IN ROOM, ON MODERATE SI. C/O LOWER BACK PAIN LAST NIGHT, MEDICATED PER EMAR 2X WITH MINIMAL EFFECT. PT. SLEPT ON/OFF DURING THE NIGHT, NO APPARENT DISTRESS NOTED. PT. ANTICIPATING PLACEMENT TO IN PSYCH FACILITY. DENIED ANY OTHER NEEDS T/O THE SHIFT. RESTING QUIETLY IN BED, NO APPARENT DISTRESS NOTED. CALL LIGHT WITHIN REACH, SIDE RAILS UPX2, AND CAMERA ON. WILL CONT TO MONITOR.
--- NOTE | 2020-06-04 16:38 | NUR ---
SHIFT SUMMARY- PT IS A/O, PLESANT AND COOPERATIVE. HE RAN ANY SI THIS SHIFT. HE IS EATING AND DRINKING WELL. HE TOOK A SHOWER THIS MORNING. C/O BACK PAIN MEDICATED PER AUG. VISITED THIS AFTERNOON.
--- NOTE | 2020-06-05 04:56 | NUR ---
SHIFT SUMMARY- NO ACUTE EVENTS OVERNIGHT. PT. AMBULATING INDEPENDENTLY IN ROOM. MEDICATED 1X FOR PAIN LAST NIGHT, PT. REPORTED GOOD EFFECT. ASLEEP T/O THE NIGHT, NO APPARENT DISTRESS NOTED. DENIED ANY OTHER NEEDS DURING THE NIGHT. CALL LIGHT WITHIN REACH AND SIDE RAILS UPX2. WILL CONT TO MONITOR.
--- NOTE | 2020-06-05 17:47 | NUR ---
SHIFT SUMMARY- PT IS A/O, PLESANT AND COOPERATIVE. HE IS EATING AND DRINKING WELL. HAD SEVERAL BM THIS SHIFT, REPORTS DECREASED ABDOMINAL DISCOMFORT. HIS MOTHER WAS ADMITED TO THE ED THIS AFTERNOON, HE SPOKE WHIT HER ON THE PHONE, AND IS CONCERNED ABOUT HER HEALTH. SPOKE WITH DR. HAINES ABOUT THIS AND HIS PULSE. WILL CONTINUE TO MONITOR, HE HAD A CHANGE IN THE FREUENCY OF HIS KLONOPIN THIS AFTERNOON WHICH MAY HELP WITH HIS PULSE. HIS BED IS IN THE LOW POSITION AND HIS CALL LIGHT IS WITHIN REACH
--- NOTE | 2020-06-06 04:17 | NUR ---
SHIFT SUMMARY- NO ACUTE CHANGES TO CONDITION, ON MODERATE SI. PT. PLEASANT AND COOPERATIVE WITH CARE. MEDICATED FOR LOWER BACK PAIN PER PT. REQUEST, PT. STATES MINIMAL RELIEF. APPEARED TO HAVE SLEPT COMFORTABLY DURING THE NIGHT. NO APPARENT DISTRESS NOTED. CALL LIGHT WITHIN REACH, SIDE RAILS UPX2, AND CAMERA MONITORING IN PLACE. WILL CONT TO MONITOR.
--- NOTE | 2020-06-06 10:36 | NUR ---
no changes made to accomadations/restrictions discussed pt condition with hospitalist but no orders given, provided calllight with long chord that would reach to bed after consult with cn and pt stating he had no intention of harming himself, also on monitor, expressed concern that current dx will affect chance for placement
--- NOTE | 2020-06-06 16:06 | NUR ---
For dr Wong pt stated that he planned to strip and walk into highway traffic if he was released, this contrasted with him stating he had no intention of committing suicide, pt clarified that he meant he felt safe and secure here and had no intention of hurting himself, but if he was forced to leave with no support he would kill himself, nurse removed cables and chords that could be used to hurt himself, pt states he would let staff know if he started thinking about hurting himself, remains concerned about dx blocking possible placement
--- NOTE | 2020-06-06 19:24 | NUR ---
a+o, coopertive, no IV, air, took the information that he would not be allowed out very well, up pacing in , but able to describe to noc nurse what had happened to his wrist and hand, stated he would need pain med when possible (1999)
--- NOTE | 2020-06-07 04:16 | NUR ---
SHIFT SUMMARY A/O, ABLE TO MAKE NEEDS KNOWN. PLEASANT AND COOPERATIVE WITH CARE. ANSWERS QUESTIONS APPROPRIATELY. C/O PAIN/DISCOMFORT TO LOWER BACK WHICH WAS STATED TO BE CHRONIC AND THEN TO MEDIAL L WRIST FROM SELF AFFLICTED INJURY; MEDICATED PER EMAR. PACES BACK AND FORTH IN ROOM; AWARE UNABLE TO LEAVE R/T BEING ON CAMERA MONITORING. NO ACUTE CHANGES NOTED OVERNIGHT. APPEARED TO REST MINIMALLY. BED REMAINS IN LOWEST POSITION. CALL LIGHT IN REACH. WCTM. REPORT TO ONCOMING RN.
--- NOTE | 2020-06-07 18:41 | NUR ---
NO ACUTE CHANGES. DRESSING CHANGED TO WOUND. TOLERATED WELL.
--- NOTE | 2020-06-08 04:23 | NUR ---
PIN MACHINE TENDER SUMMARY PT A&OX4, ABLE TO MAKE NEEDS KNOWN, PLEASANT AND COOPERATIVE TO CARE. PT MEDICATED FOR PAIN PER EMAR. PT INDEPENDENT IN ROOM, FREQUENT CHECKS FOR SAFETY. DENIES CP, SOB, OR N&V. NO ACUTE CHANGES NOTED THIS SHIFT. WOUND DRESSING TO L WRIST CDI TO AA. PT CALM AND RESTED IN BED T/O SHIFT, CALL LIGHT WITHIN REACH.
--- NOTE | 2020-06-08 12:45 | NUR ---
Patient is sitting up in bed and alert. Patient openly shares about his inner struggles, his weaknesses and his deep desire to change and head down a new path. Patient states that he is afraid of his potential to do harm but also loves his family and wants to be near them. This tension, patient says, is where he is living and why he is willing to do whatever it takes to be well and head in a healthy direction. After a 65min. visit patient voices that certain priorities and a positive resolve have risen up within him. He verbalizes that he will use his aggressive/all-in attitude to move toward good. I provide therapeutic listening, reinforce healthy attitudes and practices, hear confession and explore sources of meaning and value. Patient responds well and displays evidence of catharsis and improved resolve. I will continue to remain available to patient and family.
--- NOTE | 2020-06-08 17:20 | NUR ---
NO ACUTE CHANGES TO PATIENT. WOULD LEFT [facility] PER PTS REQUEST. DRESSED LATER IN THE SHIFT WITH BANDAID. CALL LIGHT WITHIN REACH.
--- NOTE | 2020-06-08 22:34 | NUR ---
Patient pacing the room while talking to this RN. He states he is grateful that he will be going to an inpatient psych facility as he is afraid that he could possibly harm himself if he went home. flakeboard line tender informed. will continue close monitoring
--- NOTE | 2020-06-09 06:13 | NUR ---
CHANGE PERSON SUMMARY Patient was very active pacing in the room. expressed gratitude for staff and tenative plan for him to get tx in an in patient psych facility. He stated he feels he might be a danger to himself if sent home at this point. After midnight, Jose Armando fell asleep and slept through the end of the shift. Moderate complaints of (chronic) low back pain and discomfort in left wrist manager of development to a tolerable level with one hydrocodone
--- NOTE | 2020-06-09 14:56 | NUR ---
[facility] MED[facility]AN[facility] HAS ACCEPTED THE PT [phone], ENGINEER INTERN AMADOU SAID THE PERSON SHE SPOKE TO WAS NAMED SHIRLENE, A NURSE WILL BE CALLING HERE TO GET REPORT, PT HAS BEEN NOTIFIED AND IS MAKING PHONE CALLS
--- NOTE | 2020-06-09 15:49 | NUR ---
NURSE TO NURSE REPORT GIVEN TO AMY AT [facility]
--- NOTE | 2020-06-09 17:26 | NUR ---
SUMMARY/DISCHARGE PT BEING DISCHARGED TO [facility], TRANSPORT ARRANGED BY THE ROOF PLUMBER, WILL BE HERE AROUND 6
--- NOTE | 2020-06-09 18:38 | NUR ---
PT TRANPORTED VIA [facility]
== END 2020-06-09 18:30 | DRG 637 ==
LOC: ER 03:16 → MEDS 03:17 → EOR 03:17 → ICUW 03:17 → EOR 03:17 → ICUW 08:23 → MEDS 05-31 18:27
PROVIDERS: Emergency Medicine; Family Medicine; Hospitalist; ADMIT Internal Medicine
PROC: 3E0234Z Introduction of Serum, Toxoid and Vaccine into Muscle, Percutaneous Approach (ICD-10-PCS; principal; 2020-05-26)
PROC: 0HQEXZZ Repair Left Lower Arm Skin, External Approach (ICD-10-PCS; 2020-05-26)
DX: E13.10 Other specified diabetes mellitus with ketoacidosis without coma (principal); G92 Toxic encephalopathy; F23 Brief psychotic disorder; R45.851 Suicidal ideations; E87.1 Hypo-osmolality and hyponatremia; N17.9 Acute kidney failure, unspecified; F31.2 Bipolar disorder, current episode manic severe with psychotic features; S61.551A Open bite of right wrist, initial encounter; Y04.1XXA Assault by human bite, initial encounter; Z20.828 Contact with and (suspected) exposure to other viral communicable diseases; Y93.9 Activity, unspecified; Y92.143 Cell of prison as the place of occurrence of the external cause; Z87.828 Personal history of other (healed) physical injury and trauma; E87.6 Hypokalemia; R45.1 Restlessness and agitation; S61.512A Laceration without foreign body of left wrist, initial encounter; Z23 Encounter for immunization; F41.9 Anxiety disorder, unspecified; Z78.1 Physical restraint status; M62.838 Other muscle spasm; E86.0 Dehydration
CPT/HCPCS: 0241U; 12001; 36415; 36416; 51703; 80048; 80053; 82550; 82947; 83036; 84681; 85025; 85027; 86341; 87070; 87075; 87205; 90471; 90714; 96365-59; 96367-59; 96375-59; 99285-25; A9270; A9270-GY; G0480; J0295; J0690; J1630; J1815; J2060; J2405; J3010; J3480; J7030

== ENCOUNTER 2024-05-04 21:38 | Emergency (ER) | payer OTHER ==
[~2024-05-04] VITALS: Ht 175.3 cm; Wt 95.2 kg
[~2024-05-04 21:38] MED LIST changes: +BACL10 PO; +BUPROPION XL150 M1 PO; +CITA20 PO; +CLON.5 PO; +CYCL10 PO; +LOSARTAN-HCTZ1 EAC6 PO
[2024-05-04 21:59] VITALS: BP 190/137
[2024-05-04] MEDS ORDERED: Ketorolac Tromethamine 15mg Vial IM ONE (22:05)
== END 2024-05-04 23:02 | disposition home or self-care (01) ==
LOC: ER 21:38
DX: S40.011A Contusion of right shoulder, initial encounter (principal); I10 Essential (primary) hypertension; Z87.891 Personal history of nicotine dependence; Z79.899 Other long term (current) drug therapy; W20.8XXA Other cause of strike by thrown, projected or falling object, initial encounter
CPT/HCPCS: 73030; 96372; 99283-25; J1885

== ENCOUNTER 2024-06-18 19:37 | Emergency (ER) | payer OTHER ==
[~2024-06-18] VITALS: Ht 177.8 cm; Wt 70.3 kg
[2024-06-18 19:57] VITALS: BP 158/144
== END 2024-06-18 20:00 | disposition home or self-care (01) ==
LOC: ER 19:37
DX: Z77.21 Contact with and (suspected) exposure to potentially hazardous body fluids (principal); I10 Essential (primary) hypertension; Z79.899 Other long term (current) drug therapy; Z87.891 Personal history of nicotine dependence
CPT/HCPCS: 99281

== ENCOUNTER → 2024-10-08 | Outpatient (CLI) | payer OTHER ==
[2024-10-08 19:02] LABS: BASOPHILS ABSOLUTE AUTO 0.05 K/mm3 (0.00-0.23); BASOPHILS PERCENT AUTO 1 % (0-2); EOSINOPHILS ABSOLUTE AUTO 0.14 K/mm3 (0.00-0.68); EOSINOPHILS PERCENT AUTO 2 % (0-6); Hematocrit 45.7 % (37.0-53.0); Hemoglobin 14.8 g/dL (13.5-17.5); IMMATURE GRAN ABSOLUTE AUTO 0.01 K/mm3 (0.00-0.10); IMMATURE GRAN PERCENT AUTO 0 % (0-1); LYMPHOCYTES ABSOLUTE AUTO 2.72 K/mm3 (0.84-5.20); LYMPHOCYTES PERCENT AUTO 40 % (21-46); MONOCYTES ABSOLUTE AUTO 0.57 K/mm3 (0.16-1.47); MONOCYTES PERCENT AUTO 8 % (4-13); Mean Corpuscular HGB 29.9 pg (26.0-34.0); Mean Corpuscular HGB Conc 32.4 g/dL (31.5-36.5); Mean Corpuscular Volume 92 fL (80-100); Mean Platelet Volume 9.8 fL (9.1-12.4); NEUTROPHILS PERCENT AUTO 49 % (41-73); Platelet Count 287 K/mm3 (150-400); RDW Standard Deviation 40.5 fL (35.1-46.3); Red Blood Cell Count 4.95 M/mm3 (4.30-5.90); White Blood Cell Count 6.79 K/mm3 (4.00-11.30)
[2024-10-08 20:34] LABS: Lithium 1.01 mmol/L (0.60-1.20)
[2024-10-08 21:23] LABS: Albumin, Blood 4.1 g/dL (3.4-5.0); Albumin/Globulin Ratio 1.6 (0.8-1.8); Bilirubin, Total 0.5 mg/dL (0.1-1.0); Bun/Creatinine Ratio 17.8 (12.0-20.0); Creatinine, Blood 0.96 mg/dL (0.60-1.20); Globulin, Blood 2.6 g/dL (2.2-4.0); Potassium, Blood 4.5 mmol/L (3.5-5.5); Thyroid Stimulating Hormone 0.814 uIU/mL (0.360-4.800); Total Protein, Blood 6.7 g/dL (6.4-8.2)
== END ==
LOC: LAB SHORT 15:49 → LAB 15:49
PROVIDERS: Nurse Practitioner Psychiatric/Mental Health
DX: F31.9 Bipolar disorder, unspecified (principal)
CPT/HCPCS: 80053; 80178; 84443; 85025

== ENCOUNTER → 2024-11-14 | Outpatient (CLI) | payer OTHER ==
[2024-11-16 14:01] LABS: APTIMA MEDIA TYPE Urine; C. TRACHOMATIS BY TMA Negative (Negative); N. GONORRHOEAE BY TMA Negative (Negative); SPECIMEN SOURCE Urine; T. VAGINALIS BY TMA Negative (Negative)
[2024-11-16 15:25] LABS: HIV 1,2 COMBO ANTIGEN/ANTIBODY Negative (Negative)
== END ==
LOC: LAB SHORT 10:50 → LAB 10:50
PROVIDERS: Nurse Practitioner Family
DX: Z11.3 Encounter for screening for infections with a predominantly sexual mode of transmission (principal)
CPT/HCPCS: 86592; 87389; 87491; 87591; 87661

== ENCOUNTER → 2025-06-10 | Outpatient (CLI) | payer OTHER ==
[2025-06-10 16:12] LABS: Alanine Aminotransfer (ALT/SGP 28.0 U/L (12-78); Albumin, Blood 3.9 g/dL (3.4-5.0); Albumin/Globulin Ratio 1.3 (0.8-1.8); Anion Gap 7.0 mmol/L (3-11); Aspartate Aminotrans (AST/SGOT 23.0 U/L (12-37); Bilirubin, Total 0.4 mg/dL (0.1-1.0); Blood Urea Nitrogen 26.0 mg/dL (8-24); CO2, Blood 25.0 mmol/L (21-32); Calcium, Blood 9.3 mg/dL (8.5-10.1); Chloride, Blood 109.0 mmol/L (98-108); Creatinine, Blood 0.86 mg/dL (0.60-1.20); Globulin, Blood 3.0 g/dL (2.2-4.0); Glucose, Blood 97.0 mg/dL (70-99); Potassium, Blood 4.5 mmol/L (3.5-5.5); Sodium, Blood 136.0 mmol/L (136-145); Thyroid Stimulating Hormone 0.729 uIU/mL (0.360-4.800); Total Protein, Blood 6.9 g/dL (6.4-8.2)
[2025-06-10 16:26] LABS: Lithium 0.26 mmol/L (0.60-1.20)
== END ==
LOC: LAB 14:00 → LAB SHORT 14:00
PROVIDERS: Nurse Practitioner Psychiatric/Mental Health
DX: F31.9 Bipolar disorder, unspecified (principal)
CPT/HCPCS: 80053; 80178; 84443